=== PATIENT | male | born 1965 | race Caucasian/White ===

== ENCOUNTER 2017-02-13 15:41 | Emergency (ER) | payer SELFPAY ==
[~2017-02-13] VITALS: Ht 185.4 cm; Wt 108.0 kg
[2017-02-13 15:48] VITALS: BP 143/81; PULSE 118; RESP 16; TEMP 98.4; O2SAT 97
[2017-02-13] MEDS ORDERED: AZIT250T3 PO (16:30)
--- NOTE | 2017-02-13 16:31 | PD ---
HPI Chief Complaint: Cold / Flu Symptoms Time Seen by Provider: 16:24 Travel History International Travel<30 days: No Contact w/Intl Traveler<30days: No Traveled to known affect area: No History of Present Illness HPI 51-year-old male here with productive cough 8 days. He denies fever or chills. He reports exposure to his mother who had similar symptoms and was treated with an antibiotic. Symptoms are unrelieved by [id number] TheraFlu. No aggravating or alleviating factors. Symptoms severity is moderate. PFSH Past Medical History Medical History: Denies Significant Hx Social History Tobacco Use: No Allergies-Medications (Allergen,Severity, Reaction): Coded Allergies: codeine (Verified Allergy, Intermediate, GI UPSET, 02/13/17) Reported Meds & Prescriptions Reported Meds & Active Scripts Active Azithromycin 250 Mg Tab 250 Mg PO DIRECTED Take 2 tabs (500 mg) on day 1 then 1 tab daily x 4 days. Review of Systems Except as stated in HPI: all other systems reviewed are Neg Respiratory: Positive: Cough Physical Exam Narrative GENERAL: Alert, nontoxic appearing male. SKIN: Warm and dry. No rash HEAD: Normocephalic. EYES: . No injection or drainage. NECK: Supple, trachea midline. No JVD or lymphadenopathy. No meningismus CARDIOVASCULAR: Regular rate and rhythm RESPIRATORY: Breath sounds equal bilaterally. No accessory muscle use. Harsh sounding cough with questionable rhonchi GASTROINTESTINAL: Abdomen soft, non-tender, nondistended. MUSCULOSKELETAL: No cyanosis, or edema. BACK: Nontender without obvious deformity. No CVA tenderness. Data Data Last Documented VS Vital Signs Date Time Temp Pulse Resp B/P (MAP) Pulse Ox O2 Delivery O2 Flow Rate FiO2 02/13/17 15:59 Room Air 02/13/17 15:48 98.4 118 16 143/81 (101) 97 Orders Orders Ed Discharge Order (02/13/17 16:37) MDM Medical Decision Making Medical Screen Exam Complete: Yes Emergency Medical Condition: Yes Differential Diagnosis Bronchitis, Pneumonia, influenza Narrative Course 51-year-old male with productive cough 8 days. Patient is well-appearing. He was tachycardic on arrival. Recheck of his heart rate is 102. Patient be treated for bronchitis Diagnosis Primary Impression: Bronchitis Referrals: Primary Care Physician Additional Instructions: Take the antibiotic as prescribed. Stay well hydrated by drinking plenty of fluids. Follow-up with primary doctor. Scripts Azithromycin (Azithromycin) 250 Mg Tab 250 MG PO DIRECTED for Infection, #6 TAB 0 Refills Take 2 tabs (500 mg) on day 1 then 1 tab daily x 4 days. Prov: Rosaura Crow 02/13/17 Disposition: 01 DISCHARGE HOME Condition: Stable Rosaura Crow Feb 13, 2017 16:31
== END 2017-02-13 16:55 | disposition home or self-care (01) ==
LOC: PHEFT 15:41
DX: J40 Bronchitis, not specified as acute or chronic (principal); Z88.5 Allergy status to narcotic agent
CPT/HCPCS: 99283